=== PATIENT | male | born 1960 | race Caucasian/White ===

== ENCOUNTER 2021-10-08 12:43 | Emergency (ER) | payer OTHER ==
[2021-10-08 14:53] LABS: HEMOGLOBIN 15.5 gm/dl (14.0-17.5); RED BLOOD COUNT 5.03 M/UL (4.20-5.50); WHITE BLOOD COUNT 10.7 K/UL (4.5-11.0)
[2021-10-08 15:34] LABS: BUN/CREATININE RATIO 10 (0-10)
[2021-10-08] MEDS ORDERED: MEDROL4 MG PO (16:39)
[2021-10-08] MEDS ORDERED: ZITHROMAX500 MG PO (16:39)
== END 2021-10-08 17:04 | disposition home or self-care (01) ==
LOC: ER1 12:43
PROVIDERS: Preventive Medicine Occupational Medicine
DX: K12.2 Cellulitis and abscess of mouth (principal); I10 Essential (primary) hypertension; Z88.5 Allergy status to narcotic agent
CPT/HCPCS: 70360; 80048; 81001; 85025; 85652; 87081; 87880; 96374; 96375; 99283; J0456; J2930; J7030